=== PATIENT | female | born 1975 | race Caucasian/White ===

== ENCOUNTER → 2021-02-27 | Outpatient (CLI) | payer OTHER ==
--- NOTE | 2021-03-18 09:55 | MM ---
Reason for exam: screening (asymptomatic). Last mammogram was performed 1 year and 2 months ago. History: Family history of breast cancer in mother at age 60 and breast cancer in sister at age 50. Taking hormonal contraceptives for 30 years. Physical Findings: A clinical breast exam by your physician is recommended on an annual basis and results should be correlated with mammographic findings. MG Screening Mammo w CAD Bilateral CC and MLO view(s) were taken. Prior study comparison: December 25, 2019, mammogram, performed at [place]. June 19, 2018, mammogram, performed at [place]. The breast tissue is heterogeneously dense. This may lower the sensitivity of mammography. No significant changes when compared with prior studies. ASSESSMENT: Benign, BI-RAD 2 RECOMMENDATION: Routine screening mammogram of both breasts in 1 year.
== END | disposition home or self-care (01) ==
LOC: RADMAMWWP 16:27
PROVIDERS: ATTEND Obstetrics & Gynecology
DX: Z12.31 Encounter for screening mammogram for malignant neoplasm of breast (principal)
CPT/HCPCS: 77067

== ENCOUNTER → 2022-02-16 | Outpatient (CLI) | payer OTHER ==
--- NOTE | 2022-02-16 11:28 | US ---
EXAMINATION TYPE: US pelvic complete DATE OF EXAM: 02/16/2022 COMPARISON: NONE CLINICAL HISTORY: N92.1 EXCESSIVE AND FREQUENT MENSTRUATION. Patient states pelvic discomfort with so metimes break through bleeding with her OCP. TECHNIQUE: Transabdominal (TA). Transabdominal sonographic images of the pelvis were acquired. Date of LMP: 01/27/2022, EXAM MEASUREMENTS: Uterus: 9.3 x 5.0 x 3.5 cm Endometrial Stripe: 0.2 cm Right Ovary: 2.8 x 2.1 x 1.3 cm Left Ovary: 2.0 x 1.8 x 1.4 cm 1. Uterus: Anteverted Heterogenous 2. Endometrium: wnl 3. Right Ovary: wnl 4. Left Ovary: wnl 5. Bilateral Adnexa: wnl 6. Posterior cul-de-sac: no free fluid IMPRESSION: Nonspecific uterine heterogeneity.
== END | disposition home or self-care (01) ==
LOC: RADUSWWP 11:00
PROVIDERS: ATTEND Obstetrics & Gynecology
DX: N92.1 Excessive and frequent menstruation with irregular cycle (principal)
CPT/HCPCS: 76856

== ENCOUNTER → 2022-03-12 | Outpatient (CLI) | payer OTHER ==
--- NOTE | 2022-03-15 07:58 | MM ---
Reason for Exam: Screening (asymptomatic). Last mammogram was performed 1 year(s) and 1 month(s) ago. Patient History: Menarche at age 9. First Full-Term at age 26. Patient has history of breast feeding. Currently using Hormonal Contraceptives, beginning at age 18 for 28 years. Sister had breast cancer, age 50. Sister had breast cancer, age 58. Mother had breast cancer, age 60. Last menstrual period: 02/26/2022 Risk Values: Marcelina 5 year model risk: 3.4%. NCI Lifetime model risk: 31.1%. Prior Study Comparison: 06/19/2018 Screening Mammogram, [place]. 12/25/2019 Screening Mammogram, [place]. 02/27/2021 Bilateral Screening Mammogram, LOCATED WITHIN [facility]. Tissue Density: The breast tissue is heterogeneously dense. This may lower the sensitivity of mammography. Findings: Analyzed By CAD. There is no suspicious group of microcalcifications or new suspicious mass in either breast. No significant change from prior examinations. Overall Assessment: Benign, BI-RAD 2 Management: Screening Mammogram of both breasts in 1 year. A clinical breast exam by your physician is recommended on an annual basis and results should be correlated with mammographic findings. Electronically signed and approved by: Jeff Schmidt D.O.
== END | disposition home or self-care (01) ==
LOC: RADMAMWWP 10:22
PROVIDERS: ATTEND Obstetrics & Gynecology
DX: Z12.31 Encounter for screening mammogram for malignant neoplasm of breast (principal)
CPT/HCPCS: 77067

== ENCOUNTER 2022-04-06 09:27 | Day surgery (SDC) | payer OTHER ==
[2022-04-02 12:03] VITALS: BMI 25.0
[~2022-04-06 09:27] MED LIST: LACTATED RINGERS 1,000 ML IV SCH
[2022-04-06 10:20] VITALS: TEMP 97.6
[2022-04-06] MEDS ORDERED: LIDOCAINE 1% (10MG/ML) FOR IV START INTRADERMA ONE (10:20)
[2022-04-06] MEDS ORDERED: PROPOFOL 10 MG/ML 20 ML VIAL IV ONE (10:45)
--- NOTE | 2022-04-06 10:50 | P.GSHP ---
History of Present Illness H&P Date: 04/06/22 Chief Complaint: colon cancer screening 46-year-old female here today for colonoscopy. Last colonoscopy 7 years ago. Patient had polyps at that time. Family history of colon cancer in her mother. No bowel complaints. Past Medical History Past Medical History: No Reported History History of Any Multi-Drug Resistant Organisms: None Reported Past Surgical History: No Surgical Hx Reported Past Anesthesia/Blood Transfusion Reactions: No Reported Reaction Past Psychological History: No Psychological Hx Reported Smoking Status: Never smoker Past Alcohol Use History: None Reported Past Drug Use History: None Reported Medications and Allergies Home Medications Medication Instructions Recorded Confirmed Type norgestimate-ethinyl estradioL 1 tab PO HS 04/02/22 04/06/22 History [Ysy-An-Tjwhroam Tablet] Allergies Allergy/AdvReac Type Severity Reaction Status Date / Time No Known Allergies Allergy Verified 04/06/22 10:20 Surgical - Exam Vital Signs Temp Pulse Resp BP Pulse Ox 97.6 F 74 16 151/78 99 04/06/22 10:10 04/06/22 10:10 04/06/22 10:10 04/06/22 10:10 04/06/22 10:10 Physical exam: General: Well-developed, well-nourished HEENT: Normocephalic, sclerae nonicteric Abdomen: Nontender, nondistended Extremities: No edema Neuro: Alert and oriented Assessment and Plan (1) Colon cancer screening Narrative/Plan: Will proceed with colonoscopy at this time Current Visit: Yes Status: Acute Code(s): Z12.11 - ENCOUNTER FOR SCREENING FOR MALIGNANT NEOPLASM OF COLON SNOMED Code(s): 994766012
[2022-04-06] MEDS ORDERED: IV FLUID CONTINUATION 1,000 ML IV ONE (11:04)
--- NOTE | 2022-04-06 11:06 | P.PCN ---
Date of Procedure: 04/06/22 Procedure(s) Performed: PREOPERATIVE DIAGNOSIS: Colon cancer screening, history of polyps, family history of colon cancer POSTOPERATIVE DIAGNOSIS: Normal exam PROCEDURE: Colonoscopy ANESTHESIA: MAC SURGEON: Lazaro Almonte M.D. SPECIMENS: None ENDOSCOPIC PROCEDURE: The patient was placed on the endoscopy table in the left decubitus position. The Olympus colonoscope was inserted into the anus and passed under direct visualization to the base of the cecum. The appendiceal orifice was visualized. From that point the scope was slowly withdrawn inspecting all surfaces carefully. There were no neoplastic inflammatory or polypoid lesions throughout the cecum, ascending, transverse, descending, sigmoi d and rectum. There was no visible diverticulosis noted. Digital rectal examination was normal. The patient was taken to the recovery room in stable condition per anesthesia guidelines. RECOMMENDATIONS: Resume diet. Follow colonoscopy in 5 years given the patient's family history of colon cancer and history of polyps.
[2022-04-06 11:27] VITALS: BP 117/65; PULSE 78; RESP 18
== END 2022-04-06 11:42 | disposition home or self-care (01) ==
LOC: ORWHC2ENDO 09:27
PROVIDERS: ATTEND Surgery
DX: Z12.11 Encounter for screening for malignant neoplasm of colon (principal); Z86.010 Personal history of colon polyps; Z80.0 Family history of malignant neoplasm of digestive organs; Z79.3 Long term (current) use of hormonal contraceptives
CPT/HCPCS: 81025; 45378; J2704

== ENCOUNTER → 2022-10-20 | Outpatient (CLI) | payer OTHER ==
--- NOTE | 2022-10-20 10:30 | US ---
EXAMINATION TYPE: US thyroid st tissue head/neck DATE OF EXAM: 10/20/2022 COMPARISON: NONE CLINICAL HISTORY: 47-year-old female R09.89 Globus sensation. Intermittent throat pain TECHNIQUE: Multiple sonographic images of the thyroid gland are obtained. FINDINGS: GLAND SIZE: Right Lobe: 4.6 x 1.2 x 1.5 cm Overall Parenchyma: homogenous Left Lobe: 3.9 x 1.3 x 1.3 cm Overall Parenchyma: homogeneous Isthmus Thickness: 0.2 cm NODULES RIGHT: # of nodules measured on right: 0 LEFT: # of nodules measured on left: 0 ISTHMUS: # of nodules measured in the isthmus: 0 Advertising Consultant notes: Bilateral neck scanned, no evidence of lymphadenopathy. IMPRESSION: Unremarkable sonographic examination of the thyroid gland. No discrete nodules.
--- NOTE | 2022-10-20 10:33 | FL ---
EXAMINATION TYPE: FL barium swallow DATE OF EXAM: 10/20/2022 CLINICAL INDICATION: 47-year-old female R09.89, globus sensation. Irritation on the right side of the throat. COMPARISON: None Total Fluoroscopy Time: 2 minutes 26 seconds. Total images: 51. Total DAP: 5.0. FINDINGS: The swallowing mechanism is normal and hypopharyngeal anatomy is preserved. The cervical and thoracic portions have a normal course and caliber. The mucosa is normal and no persistent filling defect is encountered. There is mild esophageal dysmotility with a visualization of tertiary peristaltic contractions when t he patient is prone/supine atelectatic secondary stripping waves resulting in slight delay in clearan ce of contrast from the esophagus. There is a small sliding hiatal hernia. Valsalva maneuver shows some back filling of contrast into th e hiatal hernia but no sonya gastroesophageal reflux during the course of the exam. IMPRESSION: 1. Small sliding hiatal hernia. Valsalva maneuver shows some back filling of contrast into the hiatal hernia but no sonya gastroesophageal reflux during the course of the exam. 2. Mild esophageal dysmotility. 3. Otherwise, unremarkable esophagram.
== END | disposition home or self-care (01) ==
LOC: RADUSWWP 08:51
PROVIDERS: ATTEND Pediatrics
DX: R09.89 Other specified symptoms and signs involving the circulatory and respiratory systems (principal)
CPT/HCPCS: 74220; 76536

== ENCOUNTER → 2023-05-10 | Outpatient (CLI) | payer OTHER ==
--- NOTE | 2023-05-11 08:52 | MM ---
Reason for Exam: Screening (asymptomatic). Last mammogram was performed 1 year(s) and 2 month(s) ago. Patient History: Menarche at age 9. First Full-Term at age 26. Patient has history of breast feeding. Currently using Hormonal Contraceptives, beginning at age 18 for 28 years. Sister had breast cancer, age 50. Sister had breast cancer, age 58. Mother had breast cancer, age 60. Last menstrual period: 04/08/2023 Risk Values: Marcelina 5 year model risk: 3.6%. NCI Lifetime model risk: 30.3%. Prior Study Comparison: 12/25/2019 Screening Mammogram, [place]. 02/27/2021 Bilateral Screening Mammogram, [facility]. 03/12/2022 Bilateral MG screening mammo w CAD, [facility]. Tissue Density: The breast tissue is heterogeneously dense. This may lower the sensitivity of mammography. Findings: Analyzed By CAD. There is no suspicious group of microcalcifications or new suspicious mass. Overall Assessment: Negative, BI-RAD 1 Management: Screening Mammogram of both breasts in [address] [facility] will attempt to contact patient to return for supplemental views and ultrasound if indicated. Patient should continue monthly self-breast exams. A clinical breast exam by your physician is recommended on an annual basis. This exam should not preclude additional follow-up of suspicious palpable abnormalities. Note on Marcelina scores and lifetime risk: 1. A Marcelina score greater than 3% is considered moderate risk. If this is the case, consider specialist referral to assess eligibility for a risk reducing agent. 2. If overall lifetime risk for the development of breast cancer is 20% or higher, the patient may qualify for future screening with alternating mammogram and breast MRI. Electronically signed and approved by: Douglas Alcala DO
== END | disposition home or self-care (01) ==
LOC: RADMAMWWP 10:57
PROVIDERS: ATTEND Obstetrics & Gynecology
DX: Z12.31 Encounter for screening mammogram for malignant neoplasm of breast (principal); Z80.3 Family history of malignant neoplasm of breast
CPT/HCPCS: 77067

== ENCOUNTER → 2024-11-26 | Outpatient (CLI) | payer OTHER ==
--- NOTE | 2024-11-26 11:57 | MM ---
Reason for Exam: Screening (asymptomatic). Last mammogram was performed 1 year(s) and 6 month(s) ago. Patient History: Menarche at age 9. First Full-Term at age 26. Perimenopausal. Patient has history of breast feeding. Currently using Hormonal Contraceptives, beginning at age 18 for 28 years. Sister had breast cancer, age 50. Sister had breast cancer, age 58. Mother had breast cancer, age 60. Risk Values: Marcelina 5 year model risk: 3.7%. NCI Lifetime model risk: 30.0%. Prior Study Comparison: 02/27/2021 Bilateral Screening Mammogram, [facility]. 03/12/2022 Bilateral MG screening mammo w CAD, [place]. 05/10/2023 Bilateral MG screening mammo w CAD, [facility]. Tissue Density: The breasts are heterogeneously dense, which may obscure small masses. Findings: Analyzed By CAD. There is no suspicious group of microcalcifications or new suspicious mass in either breast. Overall Assessment: Benign, BI-RAD 2 Management: Screening Mammogram of both breasts in 1 year. . Patient should continue monthly self-breast exams. A clinical breast exam by your physician is recommended on an annual basis. This exam should not preclude additional follow-up of suspicious palpable abnormalities. Note on Marcelina scores and lifetime risk: 1. A Marcelina score greater than 3% is considered moderate risk. If this is the case, consider specialist referral to assess eligibility for a risk reducing agent. 2. If overall lifetime risk for the development of breast cancer is 20% or higher, the patient may qualify for future screening with alternating mammogram and breast MRI. [facility], , 11/26/2024 11:54 AM. Electronically signed and approved by: Chito Gibbons M.D. Radiologis
== END | disposition home or self-care (01) ==
LOC: RADMAMWWP 09:53
PROVIDERS: ATTEND Obstetrics & Gynecology
DX: Z12.31 Encounter for screening mammogram for malignant neoplasm of breast (principal); R92.333 Mammographic heterogeneous density, bilateral breasts; Z80.3 Family history of malignant neoplasm of breast; Z92.0 Personal history of contraception
CPT/HCPCS: 77067